=== PATIENT | male | born 1955 | race Caucasian/White ===

== ENCOUNTER 2018-02-06 22:31 | Emergency (ER) | payer BC ==
[2018-02-06] MEDS ORDERED: NS 0.9% 1000 ML* 1,000 ML IV ONE ×2 (22:47→22:48)
[2018-02-06] MEDS ORDERED: Ketorolac INJ* 30 MG/ML 1 ML VIAL IV PUSH ONE (22:48)
[2018-02-06] MEDS ORDERED: Ondansetron ODT TAB* 4 MG SL ONE (22:48)
[2018-02-06] MEDS ORDERED: Morphine VIAL* 4 MG/ML VIAL (1 ml vial) IV ONE (22:53)
[2018-02-06] MEDS ORDERED: Ondansetron INJ* 2 MG/ML VIAL IV ONE (22:53)
--- NOTE | 2018-02-06 23:04 | ED ---
GI/ HPI - HPI Summary HPI Summary: 63 year old male presents with sudden onset of right flank pain today. States it feels similar to previous kidney stones has had in the past. He admits to nausea and vomiting. No diarrhea or constipation. He states he was seen on at urgent care was diagnosed with UTI as has been having urgency. He had hematuria in his urine when was seen. Dr. shipley is his urologist. No fevers. No cough or chest pain or shortness breath. No previous abdominal surgeries. has history of throat CA which is in remission for. - History of Current Complaint Chief Complaint: EDFlankPain Time Seen by Provider: 02/06/18 22:49 Stated Complaint: RT FLANK PAIN Pain Intensity: 10 - Allergy/Home Medications Allergies/Adverse Reactions: Allergies Allergy/AdvReac Type Severity Reaction Status Date / Time No Known Allergies Allergy Verified 07/27/16 11:13 PMH/Surg Hx/FS Hx/Imm Hx Endocrine/Hematology History: Denies: Hx Diabetes Cardiovascular History: Denies: Hx Hypertension, Hx Pacemaker/ICD Respiratory History: Denies: Hx Asthma History: Reports: Hx Kidney Stones - LEFT Denies: Hx Dialysis, Hx Renal Disease Sensory History: Denies: Hx Hearing Aid Psychiatric History: Denies: Hx Panic Disorder - Cancer History Cancer Type, Location and Year: 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 - Surgical History Surgery Procedure, Year, and Place: 08/07/13 SEVERAL BIOPSIES TO BASE TONGUE AREA; TUBES IN EARS AUGUST 2013- OUT NOW; FEEDING TUBE/CHEMO PORT 2013- REMOVED NOW - Immunization History Date of Tetanus Vaccine: unk Infectious Disease History: No Infectious Disease History: Denies: Traveled Outside the [place] in Last 30 Days - Family History Known Family History: Negative: Renal Disease - Social History Alcohol Use: None Substance Use Type: Reports: None Smoking Status (MU): Never Smoked Tobacco Review of Systems Negative: Fever Negative: Chest Pain Negative: Shortness Of Breath Positive: Abdominal Pain, Vomiting, Nausea. Negative: Diarrhea Positive: frequency, flank pain All Other Systems Reviewed And Are Negative: Yes Physical Exam Triage Information Reviewed: Yes Vital Signs On Initial Exam: Initial Vitals Temp Pulse Resp BP Pulse Ox 96.7 F 88 22 166/100 100 02/06/18 22:39 02/06/18 22:39 02/06/18 22:39 02/06/18 22:39 02/06/18 22:39 Vital Signs Reviewed: Yes Appearance: Positive: Well-Appearing Skin: Positive: Warm, Dry Head/Face: Positive: Normal Head/Face Inspection Eyes: Positive: Normal, Conjunctiva Clear ENT: Positive: Pharynx normal Respiratory/Lung Sounds: Positive: Clear to Auscultation, Breath Sounds Present Cardiovascular: Positive: Normal, RRR Abdomen Description: Positive: Soft, CVA Tenderness (R), Other: - tenderness right side of abd Bowel Sounds: Positive: Present Musculoskeletal: Positive: Normal Neurological: Positive: Normal Psychiatric: Positive: Normal Diagnostics - Vital Signs Vital Signs Temp Pulse Resp BP Pulse Ox 02/06/18 22:39 96.7 F 88 22 166/100 100 - Laboratory Result Diagrams: 02/06/18 23:00 02/06/18 22:54 Lab Statement: Any lab studies that have been ordered have been reviewed, and results considered in the medical decision making process. - CT abd CT Interpretation Completed By: Radiologist Summary of CT Findings: IMPRESSION: Recently passed right ureteral stones with very mild residual dilatation of the. right ureter and renal pelvis Re-Evaluation - Re-Evaluation First Eval Re-Evaluation Time: 00:46 Change: Improved Comment: pain is gone GIGU Course/Dx - Course Course Of Treatment: 63 year old male presents with onset of right flank pain today. Pain radiates to his right lower abdomen. He has been having urgency for the past week and was treated for a UTI on being placed on Cipro for the past couple days. He admits to nausea and vomiting. States this feels similiar to the kidney stones has had in his past. On exam tenderness over the right flank. wbc normal. crp normal. Creatine elevated. CT shows stones in the bladder. patient pain resolved. no uti. told to follow up with urology. patient understand and agrees with plan. - Diagnoses Differential Diagnoses - Male: Pyelonephritis, Ureteral Calculi, Urinary Tract Infection Provider Diagnoses: Kidney stone Discharge - Sign-Out/Discharge Documenting (check all that apply): Patient Departure - Discharge Plan Condition: Good Disposition: HOME Patient Education Materials: Kidney Stones (ED) Referrals: Brian Xiong MD [Primary Care Provider] - Juanito Shipley MD [Medical Doctor] - Additional Instructions: Take ibuprofen or tyenlol every 6 hours Follow up with urology Return to ED if unable to manage pain at home, develop fever, or any new or worsening symptoms - Billing Disposition and Condition Condition: GOOD Disposition: Home
[2018-02-06 23:15] LABS: ABS Basophils 0 10^3/ul (0-0.2); ABS Eosinophils 0.1 10^3/ul (0-0.6); ABS Lymphocytes 0.9 10^3/ul (1.0-4.8); ABS Monocytes 0.6 10^3/ul (0-0.8); ABS Neutrophils 7.1 10^3/ul (1.5-7.7); ABS Nucleated RBC 0 10^3/ul; Eosinophil % 1.2 %; Hematocrit 43 % (42-52); Hemoglobin 14.7 g/dl (14.0-18.0); Lymphocyte % 10.2 %; Mean Corpuscular HGB Conc 34 g/dl (31-36); Mean Corpuscular Hemoglobin 31 pg (27-31); Mean Corpuscular Volume 91 fL (80-94); Nucleated Red Blood Cells % 0; Platelet Count 227 10^3/ul (150-450); Red Blood Count 4.73 10^6/ul (4.00-5.40); Red Cell Distribution Width 14 % (10.5-15); White Blood Count 8.7 10^3/ul (3.5-10.8)
[2018-02-06 23:26] LABS: Albumin 4.1 g/dL (3.2-5.2); Albumin/Globulin Ratio 1.5 (1-3); BUN/Creatinine Ratio 16.2 (8-20); C Reactive Protein 2.15 mg/L (<8.01); Calcium 9.4 mg/dL (8.6-10.3); EGFR Non-African American 55.8 (>60); Globulin 2.7 g/dL (2-4); Potassium 3.5 mmol/L (3.5-5.0); Total Protein 6.8 g/dL (6.4-8.9)
[2018-02-07 00:53] LABS: Urine Appearance Clear; Urine Bacteria Absent (Absent); Urine Bilirubin Negative (Negative); Urine Blood 2+ (Negative); Urine Color Yellow; Urine Glucose Negative (Negative); Urine Ketones Trace (Negative); Urine Nitrite Negative (Negative); Urine Protein Negative (Negative); Urine Red Blood Cell 3+(>10/hpf) (Absent); Urine Specific Gravity 1.015 (1.010-1.030); Urine Urobilinogen Negative (Negative); Urine White Blood Cell Trace(0-5/hpf) (Absent)
[2018-02-07 01:18] VITALS: BP 132/71
== END 2018-02-07 01:17 | disposition home or self-care (01) ==
LOC: ED 22:31
DX: N20.0 Calculus of kidney (principal); R10.84 Generalized abdominal pain; R11.2 Nausea with vomiting, unspecified; R31.9 Hematuria, unspecified
CPT/HCPCS: 36415; 74176; 80053; 81003; 81015; 83605; 85025; 86140; 87086; 96361; 96374; 96375; 99283; J1885; J2270; J2405